=== PATIENT | female | born 1965 | race Caucasian/White ===

== ENCOUNTER → 2016-11-30 | Outpatient (CLI) | payer MEDICARE | LOC: KOH-I 13:35 | DX: M25.552 Pain in left hip (principal) | CPT/HCPCS: 73721 ==

== ENCOUNTER → 2016-12-23 | Outpatient (CLI) | payer MEDICARE | LOC: KOH-I 13:00 | DX: M54.40 Lumbago with sciatica, unspecified side (principal); M51.26 Other intervertebral disc displacement, lumbar region | CPT/HCPCS: 72148 ==

== ENCOUNTER → 2020-08-31 | Outpatient (CLI) | payer OTHER | LOC: KOH-I 10:24 | DX: M50.30 Other cervical disc degeneration, unspecified cervical region (principal); M50.222 Other cervical disc displacement at C5-C6 level; M48.02 Spinal stenosis, cervical region | CPT/HCPCS: 72141 ==